=== PATIENT | female | born 1935 | race Caucasian/White ===

== ENCOUNTER 2016-07-26 03:34 | Emergency (ER) | payer MEDICARE ==
[~2016-07-26] VITALS: Ht 170.2 cm; Wt 77.4 kg
[~2016-07-26 03:34] MED LIST: GABA300C10 PO; NEBI10TA3 PO; OXYC-302 PO
[2016-07-26 03:35] VITALS: BP 174/86
[2016-07-26] MEDS ORDERED: FLUORESCEIN OPHTHALMIC 1 MG STRIP ONE (03:50)
[2016-07-26] MEDS ORDERED: PROPARACAINE OPHTH 0.5%, 15ML ONE (03:50)
== END 2016-07-26 04:38 | disposition home or self-care (01) ==
LOC: ED 04:32
DX: H11.32 Conjunctival hemorrhage, left eye (principal); H57.12 Ocular pain, left eye; I10 Essential (primary) hypertension
CPT/HCPCS: 99283